=== PATIENT | male | born 1980 | race Caucasian/White ===

== ENCOUNTER 2016-12-27 08:56 | Emergency (ER) | payer MEDICAID, OTHER ==
[~2016-12-27] VITALS: Wt 62.0 kg
[~2016-12-27 08:56] MED LIST: TRAM50TA2 PO
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
[2016-12-27] MEDS ORDERED: LIDOCAINE/MYLANTA 40 ML BTL PO ONE (10:00)
[2016-12-27] MEDS ORDERED: IBUPROFEN 800 MG TAB PO ONE (10:30)
[2016-12-27 10:42] LABS: ADD SCAN DIFF NO
[2016-12-27 10:46] LABS: BASOPHILS % 0.3 % (0.0-2.0); EOSINOPHILS # 0.3 10^3/ul (0.0-0.5); EOSINOPHILS % 3.4 % (0.0-7.0); HEMATOCRIT 48.7 % (42.0-52.0); HEMOGLOBIN 15.9 g/dl (14.0-18.0); LYMPHOCYTES # 2.4 10^3/ul (0.8-2.9); LYMPHOCYTES % 26.1 % (15.0-51.0); MEAN CORPUSCULAR HEMOGLOBIN 28.1 pg (29.0-33.0); MEAN CORPUSCULAR HGB CONC 32.6 g/dl (32.0-37.0); MEAN CORPUSCULAR VOLUME 86.2 fl (82.0-101.0); MEAN PLATELET VOLUME 11.8 fl (7.4-10.4); MONOCYTE # 0.6 10^3/ul (0.3-0.9); MONOCYTES % 6.2 % (0.0-11.0); NEUTROPHIL # 5.7 10^3/ul (1.6-7.5); NEUTROPHILS % 63.7 % (39.0-77.0); PLATELET COUNT 253 10^3/UL (140-415); RED BLOOD COUNT 5.65 10^6/ul (4.70-6.10); RED CELL DISTRIBUTION WIDTH 13.6 % (11.5-14.5)
[2016-12-27 11:50] LABS: ALBUMIN 4.6 g/dl (3.3-4.9); CHLORIDE 106 mmol/L (97-110); POTASSIUM 4.9 mmol/L (3.5-5.1); SODIUM 148 mmol/L (135-144)
[2016-12-27 11:52] LABS: CREATININE 0.79 mg/dl (0.61-1.24)
[2016-12-27 11:53] LABS: ALANINE AMINOTRANSFERASE 40 IU/L (13-69); ALBUMIN/GLOBULIN RATIO 1.53; ALKALINE PHOSPHATASE 69 IU/L (42-121); ANION GAP 19 (8-16); ASPARTATE AMINO TRANSFERASE 39 IU/L (15-46); BILIRUBIN,INDIRECT 0.4 mg/dl (0-1.1); BILIRUBIN,TOTAL 0.4 mg/dl (0.2-1.3); BLOOD UREA NITROGEN 19 mg/dl (7-20); CALCIUM 9.7 mg/dl (8.4-10.2); CARBON DIOXIDE 28 mmol/L (21-31); GLUCOSE 99 mg/dl (70-220); TOTAL PROTEIN 7.6 g/dl (6.1-8.1)
[2016-12-27 12:06] LABS: TROPONIN-I < 0.010 ng/ml (0.00-0.12)
[2016-12-27] MEDS ORDERED: IBUP-1542 PO (12:09)
[2016-12-27] MEDS ORDERED: RANI150T9 PO (12:12)
[2016-12-27 12:25] VITALS: BP 123/65; PULSE 72; RESP 19; TEMP 98.3
== END 2016-12-27 12:25 | disposition home or self-care (01) ==
LOC: FTE 08:56
DX: R07.9 Chest pain, unspecified (principal)
CPT/HCPCS: 80053; 83690; 84484; 85025; 93005; Z7502; Z7610

== ENCOUNTER 2017-01-11 13:52 | Emergency (ER) | payer MEDICAID ==
[~2017-01-11] VITALS: Ht 172.7 cm; Wt 73.0 kg
[~2017-01-11 13:52] MED LIST changes: +IBUP-1542 PO; +RANI150T9 PO
[2017-01-11 13:57] VITALS: Ht 172.7 cm; Wt 73.0 kg
[2017-01-11] MEDS ORDERED: AZIT250T94 PO (17:14)
[2017-01-11] MEDS ORDERED: CETI10CA PO (17:14)
[2017-01-11] MEDS ORDERED: NAPR-260 PO (17:15)
[2017-01-11] MEDS ORDERED: D-ME473S18 PO (17:16)
[2017-01-11 17:25] VITALS: BP 125/74; PULSE 71; RESP 18; TEMP 98
--- NOTE | 2017-01-11 17:26 | ERD ---
ER Documentation Chief Complaint Date/Time DATE: 01/11/17 TIME: 17:17 Chief Complaint Pt with CWP, SoB and cough X 2 days. HPI This a 36-year-old male who presents to the emergency department today complaining of cough for the past 3-4 days. Patient states he feels some difficulty breathing as well as chest wall pain from the cough. States he has taken Mucinex [id number] with no improvement. States he smokes cigarettes. Denies any fevers or chills . ROS All systems reviewed and are negative except as per history of present illness. Medications Home Meds Active Scripts Dextromethorphan Hb-Promethazine Hcl (Promethazine DM Syrup) 473 Ml Syrup, 5 ML PO Q6H Y for COUGH, #4 OZ Prov:MARGIE GORDON PA-C 01/11/17 Naproxen* (Naprosyn*) 500 Mg Tablet, 500 MG PO BID Y for PAIN AND/OR INFLAMMATION, #30 TAB Prov:MARGIE GORDON PA-C 01/11/17 Cetirizine Hcl* (Zyrtec*) 10 Mg Capsule, 10 MG PO DAILY, #10 TAB.CHEW Prov:MARGIE GORDON PA-C 01/11/17 Azithromycin* (Zithromax*) 250 Mg Tablet, 250 MG PO .TyronePACK DIRECTED, #6 TAB TAKE 500 MG (2 TABS) THE FIRST DAY THEN 250 MG (1 TAB) DAYS 2-5 Prov:MARGIE GORDON PA-C 01/11/17 Ranitidine Hcl* (Zantac*) 150 Mg Tablet, 150 MG PO DAILY Y for EPIGASTRIC PAIN, #30 TAB Prov:ARIANA GIRALDO MD 12/27/16 Ibuprofen* (Motrin*) 600 Mg Tab, 600 MG PO Q6H Y for PAIN AND OR ELEVATED TEMP, #30 TAB Prov:ARIANA GIRALDO MD 12/27/16 Tramadol HCl (Tramadol HCl) 50 Mg Tablet, 50 MG PO Q6 Y for PAIN, #10 TAB Prov:MARIAM DICKENS NP 02/14/16 Allergies Allergies: Coded Allergies: No Known Allergies (Verified Allergy, Mild, 12/04/12) PMhx/Soc Medical and Surgical Hx: pt denies Medical Hx, pt denies Surgical Hx History of Surgery: No Anesthesia Reaction: No Hx Neurological Disorder: No Hx Respiratory Disorders: No Hx Cardiac Disorders: No Hx Psychiatric Problems: No Hx Miscellaneous Medical Probl: No Hx Alcohol Use: No Hx Substance Use: No Hx Tobacco Use: No Physical Exam Vitals Vital Signs Date Time Temp Pulse Resp B/P Pulse Ox O2 Delivery O2 Flow Rate FiO2 01/11/17 13:57 98.2 86 18 140/71 99 Physical Exam Const: Talking, no acute distress Head: Atraumatic Eyes: Normal Conjunctiva ENT: Ears TMs normal. Nose no drainage. Throat no erythema no exudate. Neck: Full range of motion..~ No meningismus. Resp: Clear to auscultation bilaterally. No absent breath sounds. No wheezing nontender to palpation Cardio: Regular rate and rhythm, no murmurs Skin: No petechiae or rashes Back: No midline or flank tenderness Ext: No cyanosis, or edema. No calf tenderness Neur: Awake and alert Psych: Normal Mood and Affect Procedures/MDM This is a 36-year-old male who presents to the emergency department today for cough, shortness of breath and chest wall pain for the past 3-4 days. Patient was seen here on December 27 for chest pain and had laboratory workup and EKG done at that time. Patient has had 2 abnormal EKGs in the past. Patient was offered the opportunity for admission at that time however patient declined it stating that he had been told he had abnormal EKGs. An EKG was done in triage. EKG read and interpreted by rate [address] elevation. Sinus rhythm with short [place]. Low suspicion for acute [place], PE, pericarditis. Patient's physical exam is benign however patient is a smoker and works with [employer]. I did instruct the patient that he needed to stop smoking as well as wear a mask while he is at work. Patient is afebrile and otherwise well- appearing. His oxygen saturation 99%. He is not tachycardic. I did offer the patient a chest x-ray however he has declined at this time. Patient was given a prescription for azithromycin to treat possible bronchitis. Other differentials to consider viral URI, costochondritis. Patient is talkative in the exam room. He does not appear short of breath. The suspicion for PE. Patient will also given a prescription for Naprosyn, promethazine and Zyrtec. At this time the patient is stable for discharge and outpatient management. Patient should follow up with their PCP in the next 1-2 days. They may return to the emergency department sooner for any persistent or worsening of symptoms. Patient understood and agreed with the plan. Departure Diagnosis: Primary Impression: Cough Condition: Fair Patient Instructions: Cough, Chronic, Uncertain Cause, (Adult) Additional Instructions: Call your primary care doctor TOMORROW for an appointment during the next 1-2 days.See the doctor sooner or return here if your condition worsens before your appointment time. Stop smoking cigarettes Wear a mask at work Take antibiotics as prescribed Take all other medications for cough MARGIE GORDON PA-C Jan 11, 2017 17:26
== END 2017-01-11 17:26 | disposition home or self-care (01) ==
LOC: FTE 13:52
DX: R05 Cough (principal)
CPT/HCPCS: 99284

== ENCOUNTER 2017-07-11 17:52 | Emergency (ER) | payer OTHER, MEDICAID ==
[~2017-07-11] VITALS: Ht 170.2 cm; Wt 73.0 kg
[~2017-07-11 17:52] MED LIST changes: +AZIT250T94 PO; +CETI10CA PO; +D-ME473S18 PO; +NAPR-260 PO
[2017-07-11 17:55] VITALS: Ht 170.2 cm; Wt 73.0 kg
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
[2017-07-11 20:49] LABS: ADD UMIC NO; UR ASCORBIC ACID NEGATIVE (NEGATIVE); UR BILIRUBIN (Dip) NEGATIVE (NEGATIVE); UR BLOOD (Dip) NEGATIVE (NEGATIVE); UR CLARITY CLEAR (CLEAR); UR COLOR YELLOW (YELLOW); UR GLUCOSE (Dip) NEGATIVE (NEGATIVE); UR KETONES (Dip) NEGATIVE (NEGATIVE); UR LEUKOCYTE ESTERASE (Dip) NEGATIVE Leu/ul (NEGATIVE); UR NITRITE (Dip) NEGATIVE (NEGATIVE); UR SPECIFIC GRAVITY (Dip) 1.027 (1.003-1.030); UR TOTAL PROTEIN (Dip) NEGATIVE (NEGATIVE); UR UROBILINOGEN (Dip) NEGATIVE (NEGATIVE)
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
[2017-07-11] MEDS ORDERED: CYCL-319 PO (22:42)
[2017-07-11] MEDS ORDERED: IBUP800T25 PO (22:42)
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
[2017-07-11 23:00] VITALS: BP 132/79; PULSE 84; RESP 18
[2017-07-11] MEDS ORDERED: PHEN-537 PO (23:01)
== END 2017-07-11 23:00 | disposition home or self-care (01) ==
LOC: FTE 17:52
DX: S39.92XA Unspecified injury of lower back, initial encounter (principal); V49.50XA Passenger injured in collision with unspecified motor vehicles in traffic accident, initial encounter
CPT/HCPCS: 72125; 72128; 72131; 81003

== ENCOUNTER 2018-08-19 02:26 | Emergency (ER) | END 2018-08-19 04:05 | disposition home or self-care (01) ==

== ENCOUNTER 2019-06-13 15:50 | Emergency (ER) | payer SELFPAY ==
[~2019-06-13] VITALS: Ht 167.6 cm; Wt 77.2 kg
[~2019-06-13 15:50] MED LIST changes: +AZIT250T PO; -AZIT250T94 PO; +CYCL10TA7 PO; +IBUP800T48 PO; -NAPR-260 PO; +NAPR-985 PO; +PHEN-537 PO; +RANI150T35 PO; -RANI150T9 PO
[2019-06-13 15:53] VITALS: BP 130/75; PULSE 85; RESP 16; Ht 167.6 cm; Wt 77.2 kg
[2019-06-13] MEDS ORDERED: IBUPROFEN 800 MG TAB PO ONE (16:30)
--- NOTE | 2019-06-13 17:18 | ERD ---
ER Documentation Chief Complaint Chief Complaint pt reports object fell on R wrist HPI 38-year-old female presents ED complaining of right wrist pain x2 hours. He states that he was at work and large piece of metal hit his wrist. He reports 10 out of 10 sharp pain that is localized to his wrist. He has taken Tylenol with mild to moderate relief of his pain. He denies any previous injury to the right hand or wrist. He denies any other past medical history. ROS All systems reviewed and are negative except as per history of present illness. Medications Home Meds Active Scripts Naproxen* (Naprosyn*) 500 Mg Tablet, 500 MG PO BID PRN for PAIN AND/OR INFLAMMATION, #30 TAB Prov:MASON SANCHEZ PA-C 06/13/19 Phenazopyridine Hcl* (Pyridium*) 100 Mg Tab, 100 MG PO TID PRN for URINARY PAIN, #8 TAB Prov:ARNIE BAH 07/11/17 Cyclobenzaprine Hcl* (Cyclobenzaprine Hcl*) 10 Mg Tablet, 10 MG PO Q12 PRN for PAIN, #15 TAB Prov:ARNIE BAH 07/11/17 Ibuprofen* (Motrin*) 800 Mg Tab, 800 MG PO Q6H PRN for PAIN AND OR ELEVATED TEMP, #30 TAB Prov:ARNIE BAH 07/11/17 Dextromethorphan Hb-Promethazine Hcl (Promethazine DM Syrup) 473 Ml Syrup, 5 ML PO Q6H PRN for COUGH, #4 OZ Prov:MARGIE GORDON PA-C 01/11/17 Naproxen* (Naprosyn*) 500 Mg Tablet, 500 MG PO BID PRN for PAIN AND/OR INFLAMMA TION, #30 TAB Prov:MARGIE GORDON PA-C 01/11/17 Cetirizine Hcl* (Zyrtec*) 10 Mg Capsule, 10 MG PO DAILY, #10 TAB.CHEW Prov:MARGIE GORDON PA-C 01/11/17 Azithromycin* (Zithromax*) 250 Mg Tablet, 250 MG PO .TyronePACK DIRECTED, #6 TAB TAKE 500 MG (2 TABS) THE FIRST DAY THEN 250 MG (1 TAB) DAYS 2-5 Prov:MARGIE GORDON PA-C 01/11/17 Ranitidine Hcl* (Zantac*) 150 Mg Tablet, 150 MG PO DAILY PRN for EPIGASTRIC PAIN, #30 TAB Prov:ARIANA GIRALDO MD 12/27/16 Ibuprofen* (Motrin*) 600 Mg Tab, 600 MG PO Q6H PRN for PAIN AND OR ELEVATED TEMP, #30 TAB Prov:ARIANA GIRALDO MD 12/27/16 Tramadol HCl (Tramadol HCl) 50 Mg Tablet, 50 MG PO Q6 PRN for PAIN, #10 TAB Prov:MARIAM DICKENS NP 02/14/16 Allergies Allergies: Coded Allergies: No Known Allergies (Verified Allergy, Mild, 12/04/12) PMhx/Soc History of Surgery: Yes (right clavical sx 2011) Anesthesia Reaction: No Hx Neurological Disorder: No Hx Respiratory Disorders: No Hx Cardiac Disorders: No Hx Psychiatric Problems: No Hx Miscellaneous Medical Probl: No Hx Alcohol Use: Yes (occasional) Hx Substance Use: No Hx Tobacco Use: Yes Smoking Status: Never smoker FmHx Family History: No diabetes Physical Exam Vitals Vital Signs Date Temp Pulse Resp B/P (MAP) Pulse Ox O2 O2 Flow FiO2 Time Delivery Rate 06/13/19 99.1 85 16 130/75 100 15:53 (93) Physical Exam Const: No acute distress Head: Atraumatic Resp: Clear to auscultation bilaterally Cardio: Regular rate and rhythm, Abd: Soft, non tender, non distended. Ext: Right UE: swollen at wrist joint, snuffbox tenderness, previously amputated pinky, 2+ pulses, ROM limmited secondary to pain. good sensation Neur: Awake and alert Psych: Normal Mood and Affect Results 24 hrs Current Medications Medications Dose Sig/Jaky Start Time Status Last (Trade) Ordered Route PRN Stop Time Admin Dose Reason Admin Ibuprofen 800 mg ONCE ONCE 06/13/19 DC 06/13/19 (Motrin) PO 16:30 16:19 06/13/19 16:31 Procedures/MDM ED COURSE: The patient was stable throughout ED course. I kept the patient informed of laboratory and diagnostic imaging results throughout the ED course. DIAGNOSTIC IMAGING: Read by radiologist. PROCEDURE: XR Right Hand CLINICAL INDICATION: Trauma TECHNIQUE: PA, oblique, and lateral radiographs were submitted. COMPARISON: None FINDINGS: Osseous structures: The osseous elements are well mineralized. There is an old appearing amputation involving the distal aspect of the middle phalanx of the right pinky finger. The osseous elements otherwise appear intact with no acute fracture or osseous destruction evident. Joint spaces: are well maintained, with no significant spurring, erosion or joint effusion evident. Soft tissues: appear unremarkable. IMPRESSION: 1. 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 2. Otherwise, unremarkable right hand with no acute injury identified. Physician Anthony Date Time Electronically viewed and signed by Physician Anthony on 06/13/2019 17:01 PROCEDURE: XR Right Wrist with Navicular View CLINICAL INDICATION: Trauma TECHNIQUE: PA, lateral, and oblique views as well as a carpal navicular view were submitted. COMPARISON: None FINDINGS: Osseous structures: appear well mineralized and intact with no fracture or destructive process identified. Joint spaces: are well maintained with no significant erosions or spurring identified. Soft tissues: appear unremarkable. IMPRESSION: Unremarkable right wrist with navicular view. Physician Anthony Date Time Electronically viewed and signed by Physician Anthony on 06/13/2019 16:59 PROCEDURES: SPLINT APPLICATION: The patient was verbally consented at bedside prior to splint application. Patient was explained the risks, benefits and alternatives to this procedure. The patient was neurovascularly intact prior to and status post application of the splint. The patient tolerated the procedure well with no complications. Splint type: Thumb spica Extremity: RUE Indication: Wrist sprain MEDICATIONS GIVEN: Motrin Patient tolerated medication well with no adverse reactions. Patient reported improvement in pain. MEDICAL DECISION MAKING: Patient is a 38-year-old male presenting with a right wrist sprain x2 hours ago. X-ray imaging was done which was unremarkable for any acute changes. Patient did have snuffbox tenderness. Patient was placed in a thumb spica splint and told to follow-up with primary care provider and Ortho. Patient's extremity symptoms have stabilized while they have been evaluated in the department and are appropriate for outpatient follow up. No evidence of fractures, dislocations, compartment syndrome, neurologic injury, vascular injury, open joint, open fracture, tendon laceration, septic arthritis, osteomyelitis, DVT, foreign body, or other emergent conditions. Vital signs were reviewed. Patient is afebrile. Patient was not hypoxic. Patient was hemodynamically stable. Patient was told to follow up with primary care for further care and management. PRESCRIPTION: Naproxen DISCHARGE: At this time, patient is stable for discharge and outpatient management. I have instructed the patient to follow-up with their primary care physician in 1-2 days. I have discussed with the patient the possibility of needing to see a specialist for further workup and imaging studies if symptoms persist. I have instructed the patient to promptly return to the ER for any new or worsening symptoms including increased pain, fever, nausea, vomiting, weakness or LOC. The patient expressed understanding of and agreement with this plan. All questions were answered. Home care instructions were provided. Disclaimer: Inadvertent spelling and grammatical errors are likely due to EHR/dictation software use and do not reflect on the overall quality of patient care. Also, please note that the electronic time recorded on this note does not necessarily reflect the actual time of the patient encounter. Departure Diagnosis: Primary Impression: Wrist injury Encounter type: initial encounter Laterality: right Qualified Codes: S69.91XA - Unspecified injury of right wrist, hand and finger(s), initial encounter Condition: Fair Patient Instructions: Wrist Sprain [facility] ted se lawrence hecho un examen mdico de control que le indica que no est en miguel angel condicin que requiera tratamiento urgente en el Departamento de Emergencia. Un estudio ms profundo y el tratamiento de snow condicin pueden esperar sin ningn riesgo hasta que usted sea atendida/o en el consultorio de snow mdico o miguel angel clnica. Es responsabilidad suya arreglar miguel angel rosette para el seguimiento del beulah. MANEJO DE CONDICIONES NO URGENTES EN EL FUTURO 1) Si usted tiene un mdico de atencin primaria: Usted debera llamar a snow mdico de atencin primaria antes de venir al departamento de emergencia. Despus de las horas de consultorio, snow doctor o snow asociado/a est disponible por telfono. El mdico o enfermero de ngoc en el servicio telefnico puede asesorarle por faye medio para atender el problema, o beulah contrario se puede programar miguel angel rosette. 2) Si usted no tiene un mdico de atencin primaria: Llame al mdico o clnica de referencia que aparece abajo ryan las horas de consultorio para hacer miguel angel rosette para que le vean. CLINICAS: [facility] [phone] [facility] [phone] [facility] [phone] [facility] [phone] [address] [facility] [phone] [address] [facility]. [phone] [address] [facility]. [facility] () Usjoelle se lawrence hecho un examen mdico de control que le indica que no est en miguel angel condicin que requiera tratamiento urgente en el Departamento de Emergencia. Un estudio ms profundo y el tratamiento de snow condicin pueden esperar sin ningn riesgo hasta que ted sea atendida/o en el consultorio de snow mdico o miguel angel clnica. Es responsabilidad suya arreglar miguel angel rosette para el seguimiento del beulah. MANEJO DE CONDICIONES NO URGENTES EN EL FUTURO 1) Si usted tiene un mdico de atencin primaria: Usted debera llamar a snow mdico de atencin primaria antes de venir al departamento de emergencia. Despus de las horas de consultorio, snow doctor o snow asociado/a est disponible por telfono. El mdico o enfermero de ngoc en el servicio telefnico puede asesorarle por faye medio para atender el problema, o beulah contrario se puede programar miguel angel rosette. 2) Si usted no tiene un mdico de atencin primaria: Llame al mdico o condado institucions de referencia que aparece abajo ryan las horas de consultorio para hacer miguel angel rosette para que le vean. SI USTED NO PUEDE PAGAR PARA FLETCHER UN MEDICO puede ir a: [facility] [address] [place] [address] [facility] [address] [place] [address] [facility] [address] [place] [address] [facility] [address] [place] [address] [facility] Urgent Care 7 a.m.- 11 p.m. Every Day of the Week NO APPOINTMENT OR AUTHORIZATION NEEDED [facility] Hours: Mon-Fri 9:00 AM - 5:00 PM Additional Instructions: Llame al doctor MAANA y carlos miguel angel ROSETTE PARA DENTRO DE 1-2 LONGO.Dgale a la secretaria que nosotros le instruimos hacer esta rosette.Avise o llame si snow condicin se empeora antes de la rosette. Regresa aqui si peor o no mejor. MASON SANCHEZ PA-C Jun 13, 2019 17:18
== END 2019-06-13 17:35 | disposition home or self-care (01) ==
LOC: FTE 15:50
DX: S63.501A Unspecified sprain of right wrist, initial encounter (principal); W18.39XA Other fall on same level, initial encounter; Y92.9 Unspecified place or not applicable; Z87.891 Personal history of nicotine dependence